=== PATIENT | male | born 2000 | race Caucasian/White ===

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

== ENCOUNTER 2023-12-01 18:08 | Emergency (ER) | payer BC, SELFPAY ==
[2023-12-01 18:10] VITALS: BP 188/157; PULSE 79; RESP 18; TEMP 36.7; O2SAT 97; BMI 25.0
--- NOTE | 2023-12-01 18:18 | EDS_ITS ---
HPI History of Present Illness Chief Complaint: Bite Narrative Narrative: Patient presenting with a rash on his back. He is concerned he got bit by a tick but has not noticed a tick here. He did not remove anything. He was turkey hunting and did not see ticks but where he had pulled off other parts of his body there was no tick bites or ramos. Patient states that area of erythema is expanding. No significant systemic signs or symptoms PFSH PFSH Home Medications ?Medication ?Instructions ?Recorded ?Last Taken ?Type NK 02/06/21 Unknown History Allergy/AdvReac Type Severity Reaction Status Date / Time oak Allergy Hives Verified 08/14/22 16:28 tree and shrub pollen Allergy Hives Verified 08/14/22 16:28 walnut Allergy Hives Verified 08/14/22 16:28 Surgical History S/P laparoscopic appendectomy (~01/2021) Social History Smoking Status: Never smoker ROS ROS ED Constitutional Constitutional ED: Denies chills, fever(s) or sweats Eyes Eyes: Denies blurry vision or change in vision ENT ENT ED: Denies ear pain or sore throat Cardiovascular Cardiovascular: Denies chest pain, palpitations or racing heartbeat Respiratory/Chest Respiratory/Chest: Denies cough, dyspnea or sputum Gastrointestinal Gastrointestinal: Denies abdominal pain, constipation, diarrhea, nausea or vomiting Genitourinary Genitourinary ED: Denies dysuria, hematuria or urinary frequency Musculoskeletal Musculoskeletal: Denies arthralgias, myalgias or neck pain Integumentary Reports rash; Denies abscess or Abrasions Neurologic Neurologic: Denies headache(s), paresthesias or weakness Psychiatric Psychiatric: Denies anxiety, depression, suicidal ideation or suicidal thoughts Endocrine Endocrinology: Denies polydipsia or polyuria EXAM Physical Exam Const Vital Signs: 12/01/23 18:10 Temperature 98.1 F Temperature Source Temporal Pulse Rate 79 Respiratory Rate 18 Blood Pressure 188/157 H Blood Pressure Mean 167 Pulse Ox 97 Oxygen Delivery Method Room Air Positive well nourished HEENT atraumatic and trauma Eyes PERRL and EOMs intact bilaterally Cardio regular rhythm Neuro oriented x3 and CN's II-XII intact bilaterally Sensorium / Orientation: alert Motor Exam: strength 5/5 throughout Psych mental status grossly normal Skin Skin Narrative: There is an area about 4 cm circular on the right lower back which is mildly erythematous. It is not target-like and there is no central clearing. There is no crepitance. MDM MDM MDM Narrative Medical decision making narrative: Patient is a small area of circular redness on his back after turkey hunting. He is concerned it was a tick but has not seen a tick on that area of the body. There is no central clearing she does not look at target. We did not identify a tick, or how long it was attached. Given the patient's given patient concern we treated him with a one-time dose of 200 mg doxycycline. Impression: 1. Erythema Discharge Plan Triage Chief Complaint: Bite ED Provider: Richard Rice Dx/Rx/DC Orders Instructions: ED Tick Bite, Antibiotic Treatment Prescriptions: No Action NK Primary Care Provider: hSaron Mccullough Referrals: Sharon Mccullough MD [Primary Care Provider] - Print Language: [place] Disposition Disposition: Home, Self Care
[2023-12-01] MEDS: Doxycycline 100 MG CAPSULE 200 MG PO (18:21)
== END 2023-12-01 18:41 | disposition home or self-care (01) ==
LOC: ED 18:29
PROVIDERS: Emergency Provider Student in an Organized Health Care Education/Training Program; PCP Pediatrics; Visit Provider Student in an Organized Health Care Education/Training Program
DX: L53.9 Erythematous condition, unspecified (principal); Z90.49 Acquired absence of other specified parts of digestive tract
CPT/HCPCS: 99282